=== PATIENT | female | born 1955 | race Caucasian/White ===

== ENCOUNTER 2021-07-08 11:09 | Emergency (ER) | payer OTHER ==
[~2021-07-08] VITALS: Ht 149.9 cm; Wt 74.4 kg
[~2021-07-08 11:09] MED LIST: ASA81 MG; ATENOLOL50 MG; COZAAR50 MG; NORVASC10 MG; PROCARDIA90 MG/BLIS; TENORMIN100 MG; TOPROL XL50 MG
== END 2021-07-08 14:53 | disposition home or self-care (01) ==
LOC: ER 11:09
DX: R00.2 Palpitations (principal); I10 Essential (primary) hypertension; F06.4 Anxiety disorder due to known physiological condition